=== PATIENT | female | born 1980 | race Caucasian/White ===

== ENCOUNTER 2024-09-15 09:13 | Emergency (ER) | payer BC, SELFPAY ==
[2024-09-15] VITALS (7 sets, daily range): BP systolic 107–148; BP diastolic 64–94; PULSE 72–81; BMI 24.5
[2024-09-15 09:51] LABS: Hematocrit 33.7 % (37.0-47.0); Hemoglobin 11.4 g/dL (12.0-16.0); Mean Corp Hgb Conc. 33.8 g/dL (33.0-37.0); Mean Corpuscular Volume 80.6 fL (81.0-99.0); Nucleated Red Blood Cells % 0 %; Platelet Count 166 10^3/uL (130-400); Red Cell Dist. Width 12.7 % (11.5-14.5)
[2024-09-15 10:08] LABS: HCG, Serum Qualitative Screen Negative
[2024-09-15 10:12] LABS: ALT (SGPT) < 10 U/L (0-35); AST (SGOT) 15 U/L (14-36); Blood Urea Nitrogen 11 mg/dl (7-17); Calcium 9.5 mg/dl (8.4-10.2); Carbon Dioxide 25 mmol/L (22-30); Chloride 106 mmol/L (98-107); Glucose 109 mg/dl (70-99); Potassium 4.1 mmol/L (3.5-5.1); Sodium 139 mmol/L (135-145); Total Protein 7.4 g/dl (6.3-8.2); eGFR > 60.00
[2024-09-15 10:16] LABS: Troponin I < 0.012 ng/ml
[2024-09-15 10:22] LABS: Albumin 4.8 g/dl (3.5-5.0); Alkaline Phosphatase 46 U/L (38-126)
--- NOTE | 2024-09-15 10:57 | ED.GENMED ---
History of Present Illness
<Jennifer Rodriguez MD - Last Filed: 09/15/24 12:45>
General
Chief Complaint: Fainting/Passed Out
Time Seen by Provider: 09/15/24 10:58
<Gaby Vazquez MD, Resident - Last Filed: 09/15/24 12:50>
General
Source: patient and spouse
Exam Limitations: none
Nursing documentation reviewed up to this point in time: agreed with
History of Present Illness
History of Present Illness:
Ms. 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
Shortly after waking up while cooking, she felt 'weird all over' and lightheaded and walked to the cough and laid down. Her witnessed her loss of consciousness. He stated it was 10-15 seconds, her eyes rolled to one side, her tongue hung out
to one side, and she make some vocal sounds (perhaps snoring). He endorsed her body twitched but her extremities were not trembling.
She did remember the episode. When she regained consciousness, she was a little confused but knew where she was, recognized her , and was oriented. She felt a similar prodrome 15 minutes later, but did not lose consciousness. She denied bowel
and bladder incontinence, tongue biting,
Her family history is notable for similar syncopal episodes in her mother, who wore a Holter monitor and was diagnosed likely with sick sinus syndrome. Her mother had multiple syncopal episodes over 6 months. One time in the ED, the monitor recorded
sinus bradycardia and then asystole for a few seconds. The mother regained consciousness with a precordial thump, which is a known maneuver that works for her. Her mother had a pacemaker placed.
She takes no medications; only a multivitamin. 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 She does not recall recent changes in her emotional state, work, etc.
If applicable-neuro sx onset
Onset of symptoms known: Yes
Date of onset of symptoms: 09/15/24
Time pt last seen normal is known: Yes
Date last time pt seen normal: 09/15/24
Past History
<Jennifer Rodriguez MD - Last Filed: 09/15/24 12:45>
Past History
ED Past Medical History: None
ED Past Surgical History:
Social History
Tobacco: Non-smoker
Alcohol: Other
Drug: None
Personal:
Living: with family
Employment: Employed
Family History
Family History: Other
<Gaby Vazquez MD, Resident - Last Filed: 09/15/24 12:50>
Past History
ED Past Medical History: Seizures (Febrile seizures as toddler)
ED Past Surgical History: Gynecological ( x3)
Social History
Tobacco: Non-smoker
Personal:
Living: with family
Employment: Employed
Family History
Family History: Diabetes and CAD
Review of Systems
<Jennifer Rodriguez MD - Last Filed: 09/15/24 12:45>
Review of Systems
Allergies reviewed?: Yes
All Other Systems: ROS reviewed and negative except as documented in HPI and ROS
Constitutional: Reports fatigue
EENT: Reports no symptoms
Respiratory: Reports no symptoms
Cardiac: Reports syncope
ABD/GI: Reports no symptoms
: Reports no symptoms
Musculoskeletal: Reports no symptoms
Skin: Reports no symptoms
Neurological: Reports no symptoms
Endocrine: Reports no symptoms
Hematologic/Lymphatic: Reports no symptoms
Psychiatric: Reports no symptoms
<Gaby Vazquez MD, Resident - Last Filed: 09/15/24 12:50>
Review of Systems
All Other Systems: ROS reviewed and negative except as documented in HPI and ROS
Phy Exam
<Jennifer Rodriguez MD - Last Filed: 09/15/24 12:45>
Physical Exam
Physical Exam:
Physical Exam
General: no apparent distress, not acutely ill, well and comfortable appearing. Smiling and conversational
Neck: supple. no meningeal signs. normal psoterior pharynx
Heart: s1/s2 regular rate and rhythm, no murmur. equal radial pulses.
Lungs: no acute respiratory distress. clear bilaterally
Abdomen: normal bowel sounds. not tender. no CVAT
Neuro: alert and oriented. no focal neurological deficits. Nonfocal. 5 out of 5 strength in all extremities. Extraocular muscles intact. Answers all questions appropriately. Fully awake and alert
Skin: no rash
Psychiatric: well kept. interactive and cooperative
Extremities: no edema. no calf tenderness. negative homans. good distal pulses
<Gaby Vazquez MD, Resident - Last Filed: 09/15/24 12:50>
Physical Exam
Physical Exam:
Cardiovascular: Regular rate and rhythm. No murmurs rubs or gallops.
Lungs: Clear to auscultation bilaterally.
General: Moist mucous membranes. Alert, oriented, conversational
Course
<Jennifer Rodriguez MD - Last Filed: 09/15/24 12:45>
Orders/Labs/Results
Orders:
Orders
09/15/24 09:32
Electrocardiogram (*1) Urgent
Reason for Study: Vertigo / Dizzy
EKG- Treatment ONCE
Test Result ONCE
09/15/24 09:46
Complete Blood Count/With Diff Urgent
Comprehensive Metabolic Panel Urgent
HCG, Serum Qualitative Screen Urgent
Troponin I Urgent
09/15/24 11:40
Orthostatic VS- Treatment ONCE
Abnormal Lab Results
09/15/24
09:46
RBC 4.18 L 10^6/uL
(4.20-5.40)
Hgb 11.4 L g/dL
(12.0-16.0)
Hct 33.7 L %
(37.0-47.0)
MCV 80.6 L fL
(81.0-99.0)
Glucose 109 H mg/dl
(70-99)
09/15/24 09:46
09/15/24 09:46
Vital Signs
Initial and Last Documented VS:
Initial Vital Signs
Temp Pulse Resp BP Pulse Ox
98.3 F 77 16 148/94 100
09/15/24 09:28 09/15/24 09:28 09/15/24 09:28 09/15/24 09:28 09/15/24 09:28
Last Documented Vital Signs
Temp Pulse Resp BP Pulse Ox
98.3 F 67 20 109/70 99
09/15/24 09:28 09/15/24 12:15 09/15/24 12:15 09/15/24 12:00 09/15/24 12:15
<Gaby Vazquez MD, Resident - Last Filed: 09/15/24 12:50>
Orders/Labs/Results
Orders:
Orders
09/15/24 09:32
Electrocardiogram (*1) Urgent
Reason for Study: Vertigo / Dizzy
EKG- Treatment ONCE
Test Result ONCE
09/15/24 09:46
Complete Blood Count/With Diff Urgent
Comprehensive Metabolic Panel Urgent
HCG, Serum Qualitative Screen Urgent
Troponin I Urgent
09/15/24 11:40
Orthostatic VS- Treatment ONCE
Abnormal Lab Results
09/15/24
09:46
RBC 4.18 L 10^6/uL
(4.20-5.40)
Hgb 11.4 L g/dL
(12.0-16.0)
Hct 33.7 L %
(37.0-47.0)
MCV 80.6 L fL
(81.0-99.0)
Glucose 109 H mg/dl
(70-99)
09/15/24 09:46
09/15/24 09:46
Vital Signs
Initial and Last Documented VS:
Initial Vital Signs
Temp Pulse Resp BP Pulse Ox
98.3 F 77 16 148/94 100
09/15/24 09:28 09/15/24 09:28 09/15/24 09:28 09/15/24 09:28 09/15/24 09:28
Last Documented Vital Signs
Temp Pulse Resp BP Pulse Ox
98.3 F 67 20 109/70 99
09/15/24 09:28 09/15/24 12:15 09/15/24 12:15 09/15/24 12:00 09/15/24 12:15
<Jennifer Rodriguez MD - Last Filed: 09/15/24 12:45>
MDM/Problems Addressed
Differential Diagnosis Includes:
Seizure, orthostatic syncope, vasovagal syncope, cardiac arrhythmia
MDM/Problems Addressed:
Patient presents after an episode of passing out
Acute Exacerbation and/or Progression of Chronic Illness:
Patient was initially hypertensive, however, blood pressure is now normal
Acute Exacerbation and/or Progression of Chronic Illness: HTN
<Gaby Vazquez MD, Resident - Last Filed: 09/15/24 12:50>
MDM/Problems Addressed
Differential Diagnosis Includes:
Cardiogenic syncope
Vasovagal syncope
Seizure
MDM/Problems Addressed:
Patient presents after an episode of passing out.
Cardiology was consulted for follow-up visit
<Jennifer Rodriguez MD - Last Filed: 09/15/24 12:45>
*Pulse Oximetry
Patient hypoxic: no
Comment: 100% on room air
*EKG
Interpreted by ED Provider?: Yes
Interpretation: normal
Comparison EKG: no comparison EKG present
Rate: normal
Rhythm: sinus
[place]: normal axis
Interval: normal interval
QRS Pattern: normal QRS
Ischemia: no ischemia
*Analytical Lead Interpretation
Rate: normal
Interpretation: normal
Rhythm: sinus
*Critical Care Note
Total Time (30-74mins, 75-104mins- exclusive of procedures): Not Applicable
Data Reviewed
Review of Other/Old Records Reveals: Testing (Cardiac echo normal from 2019)
Source: patient and spouse
<Gaby Vazquez MD, Resident - Last Filed: 09/15/24 12:50>
*Pulse Oximetry
SaO2: 100
Oxygen Mode of Delivery: Room air
<Jennifer Rodriguez MD - Last Filed: 09/15/24 12:45>
Update Note
Update Note:
Patient continues to look well and comfortable. Patient's symptoms are more consistent with syncope rather than seizure, as she was unresponsive for a few seconds and recovered almost immediately. I have watched patient on the hall monitor for
several hours and there have been no signs of heart block, bradycardia or tachycardia. Patient has no chest pain or shortness of breath to suggest PE. Patient is slightly anemic but not enough to cause a syncopal episode. Patient appears
well-hydrated. It is unclear why patient had a syncopal episode. Patient assures me that she will follow-up with cardiology.
ED Attending Note
<Gaby Vazquez MD, Resident - Last Filed: 09/15/24 12:50>
-
Portions of this chart may have been created with voice recognition software.� Occasional wrong word or��sound alike� substitutions may have occurred due to the inherent limitations of voice recognition software.
Discharge Plan
Departure
Patient Disposition: Home (Routine Discharge)
Date of Disposition: 09/15/24
Time of Disposition: 12:43
Patient with high blood pressure during this ER visit?: No
Condition: Good
Covid-19: Not Applicable
Discharge Problem:
Syncope
Instructions: Syncope (Fainting) (DC)
Prescriptions:
No Action
PNV no.95-ferrous fumarate-FA [] 1 EACH tablet
1 tab PO DAILY
acetaminophen 325 MG tablet
650 mg PO Q4HPRN PRN (Reason: mild pain) 0RF
ibuprofen 600 MG tablet
600 mg PO Q6HPRN PRN (Reason: cramps) 0RF
Referrals:
Linden Barroso MD [Active, Cardiology]
Referral Note: Call cardiology this Monday to schedule follow-up within 1 week.
UNKNOWN - PT DOES,NOT KNOW [Family Provider]
Activity Restrictions/Additional Instructions:
You came to the ED for an episode of fainting. It was likely syncope (versus seizure). Given your mother's history of arrhythmia, your cardiology practice was notified to schedule a follow-up visit.
Please return if you experience loss of consciousness with head or other trauma, bladder/bowel incontinence, visual or auditory prodrome. Please take care to move to safety when you feel the warning signs come on. It was a pleasure to be a part of
your care team.
Interventions
Interventions:
*Risk Screen - Suicide Last Done: 09/15/24 09:28
*General Assessment Last Done: 09/15/24 09:28
*Neglect/Abuse Screening Last Done: 09/15/24 11:45
*ED- Fall Risk Assessment Last Done: 09/15/24 11:34
*ED COVID-19 Vaccine History Last Done: 09/15/24 09:28
ED- Cardiac Assessment Last Done: 09/15/24 11:49
ED- Neurological Assessment Last Done: 09/15/24 11:49
Discharge Date and Time
Print Language: SWISS
--- NOTE | 2024-09-15 11:31 | EDRN ---
Resident Dr. Vazquez was in to see pt at this time.
--- NOTE | 2024-09-15 12:01 | EDRN ---
Dr. Rodriguez in room w/ pt.
== END 2024-09-15 12:58 | disposition home or self-care (01) ==
LOC: EMR 09:13
PROVIDERS: EMERGENCY PHYSICIAN Emergency Medicine
DX: R55 Syncope and collapse (principal); R53.83 Other fatigue; D64.9 Anemia, unspecified; G40.802 Other epilepsy, not intractable, without status epilepticus
CPT/HCPCS: 99283; 80053; 84484; 84703; 85025; 93005

== ENCOUNTER → 2024-12-07 09:10 | Outpatient (REF) | payer BC, SELFPAY | LOC: RCS 09:10 | PROVIDERS: ATTENDING PHYSICIAN Nuclear Medicine Nuclear Cardiology; FAMILY PHYSICIAN Family Medicine | DX: R00.2 Palpitations (principal) | CPT/HCPCS: 93306 ==

== ENCOUNTER → 2024-12-12 09:57 | Outpatient (REF) | payer BC, SELFPAY | LOC: RCS 09:57 | PROVIDERS: ATTENDING PHYSICIAN Nuclear Medicine Nuclear Cardiology; FAMILY PHYSICIAN Family Medicine | DX: R00.2 Palpitations (principal); R55 Syncope and collapse | CPT/HCPCS: 93017; 93350 ==